=== PATIENT | female | born 1945 | race Two or more races ===

== ENCOUNTER 2021-01-27 04:13 | Day surgery (SDC) | payer OTHER ==
[2021-01-26 12:17] VITALS: BMI 27.4
[2021-01-27] MEDS ORDERED: MIDAZOLAM HCL 2 MG/2 ML SINGLE DOSE VIAL ONE (09:55)
[2021-01-27] MEDS ORDERED: ceFAZolin SODIUM 1 GM VIAL IVPB ONE (10:02)
[2021-01-27 13:55] VITALS: BP 130/74; PULSE 58; TEMP 98
== END 2021-01-27 12:40 | disposition home or self-care (01) ==
LOC: JASU-SURG 04:13
PROVIDERS: ATTEND Urology
PROC: 0TF4XZZ Fragmentation in Left Kidney Pelvis, External Approach (ICD-10-PCS; principal; 2021-01-27 09:45)
DX: N20.0 Calculus of kidney (principal)
CPT/HCPCS: 82962